=== PATIENT | female | born 1955 | race African-American/Black ===

== ENCOUNTER 2020-12-29 17:29 | Observation (INO) | payer OTHER ==
[~2020-12-29] VITALS: Ht 160 cm; Wt 110.9 kg
[2020-12-29 17:48] VITALS: BP_SYST 187
[2020-12-29] MEDS: ASPIRIN 325 MG TABLET PO ONE (18:04)
[2020-12-29 18:25] LABS: BASOPHILS % (AUTO) 0.4 % (0.0-2.0); EOSINOPHILS # (AUTO) 0.3 K/uL (0.0-0.4); EOSINOPHILS % (AUTO) 3.6 % (0.0-4.0); HEMATOCRIT 40.9 % (36-48); HEMOGLOBIN 13.7 g/dL (12.0-16.0); LYMPHOCYTES # (AUTO) 2.7 K/uL (1.0-5.5); LYMPHOCYTES % (AUTO) 34.1 % (20.5-51.5); MEAN CORPUSCULAR HEMOGLOBIN 32 pg (27-31); MEAN CORPUSCULAR HGB CONC 34 % (32-36); MEAN CORPUSCULAR VOLUME 94 fL (79.0-98.0); MONOCYTES # (AUTO) 0.6 K/uL (0.0-1.0); MONOCYTES % (AUTO) 7.6 % (1.7-9.3); NEUTROPHILS # (AUTO) 4.3 K/uL (1.8-7.7); NEUTROPHILS % (AUTO) 54.3 % (40.0-70.0); PLATELET COUNT (AUTO) 232 K/uL (130-430); RED BLOOD CELL COUNT(AUTO) 4.35 MIL/uL (4.2-6.2); RED CELL DISTRIBUTION WIDTH 13.1 % (9.0-15.0); WHITE BLOOD COUNT (AUTO) 7.9 K/uL (4.8-10.8)
[2020-12-29 18:30] LABS: CALCIUM 9.4 mg/dL (8.4-11.0); CREATININE 1.29 mg/dL (0.55-1.30); POTASSIUM 4.3 mmol/L (3.5-5.1)
[2020-12-29 18:45] LABS: ALBUMIN 3.9 g/dL (3.4-4.8); FREE T4 (FREE THYROXINE) 0.9 ng/dl (0.8-1.5); THYROID STIMULATING HORMONE 3.2 uIu/mL (0.36-3.74); TOTAL BILIRUBIN 0.3 mg/dL (0.0-1.0)
[2020-12-29] MEDS ORDERED: ACET-2634 PO (19:25)
[2020-12-29] MEDS ORDERED: ATOR10TA68 PO (19:25)
[2020-12-29 20:20] VITALS: BP_SYST 155
[2020-12-29] MEDS ORDERED: ALBUTEROL SULFATE 0.083% 2.5 MG/3 ML VIAL.NEB INH PRN (23:45)
[2020-12-29] MEDS ORDERED: HYDROcodone/ACETAMIN 5-325 MG TAB (NORCO/ VICODIN) PO PRN (23:45)
[2020-12-29] MEDS ORDERED: NALOXONE HCL 0.4 MG/ML AMP (NARCAN) IVP PRN (23:45)
[2020-12-29] MEDS ORDERED: ACETAMINOPHEN 325 MG TABLET PO PRN (23:45)
[2020-12-30] VITALS: BP_SYST 135
[2020-12-30 02:44] VITALS: BP_SYST 155
[2020-12-30 08:00] VITALS: BP_SYST 142
[2020-12-30] MEDS: ATORVASTATIN 10 MG TABLET PO SCH (08:40)
[2020-12-30] MEDS ORDERED: NALOXONE HCL 0.4 MG/ML AMP (NARCAN) IVP PRN (09:15)
[2020-12-30] MEDS ORDERED: ONDANSETRON HCL 4 MG/2 ML VIAL IVP PRN (09:15)
[2020-12-30] MEDS ORDERED: MORPHINE 2 MG/ML INJ. SYRINGE IVP PRN (09:15)
[2020-12-30 09:27] LABS: CHOLESTEROL 156 mg/dL (<200); HDL CHOLESTEROL 55 mg/dL (>55); LDL CHOLESTEROL 95 mg/dL (<100); TRIGLYCERIDES 80 mg/dL (30-150)
[2020-12-30 11:26] VITALS: BP_SYST 125
[2020-12-30 13:36] VITALS: BP_SYST 142
[2020-12-30 15:04] VITALS: BP_SYST 137
[2020-12-31] MEDS ORDERED: METOPROLOL SUCCINATE 25 MG TAB.SR.24H (TOPROL XL) PO SCH (09:00)
[2020-12-31] MEDS ORDERED: ENOXAPARIN SODIUM 40 MG/0.4 ML SYRINGE SUBCUT SCH (09:00)
[2020-12-31] MEDS ORDERED: PANTOPRAZOLE SODIUM 40 MG TAB PO SCH (09:00)
== END 2020-12-30 15:53 | disposition home or self-care (01) ==
LOC: SED 17:29 → STU 18:55 → INTOOBSV 18:55 → STU 19:45
PROVIDERS: ADMIT Internal Medicine Hospice and Palliative Medicine; ATTEND Internal Medicine Hospice and Palliative Medicine
DX: R07.89 Other chest pain (principal); Z20.822 Contact with and (suspected) exposure to COVID-19; E78.5 Hyperlipidemia, unspecified; I10 Essential (primary) hypertension; R00.2 Palpitations; E66.9 Obesity, unspecified; Z90.710 Acquired absence of both cervix and uterus; Z79.899 Other long term (current) drug therapy
CPT/HCPCS: 36415 ×2; 71045; 80053; 80061; 82550; 83880; 84439; 84443; 84484 ×2; 85025; 85379; 87426; 93005 ×2; 93306; 93970; 99285; G0378 ×2; 84479